=== PATIENT | female | born 1955 | race Two or more races ===

== ENCOUNTER → 2021-01-23 | Outpatient (CLI) | payer OTHER ==
--- NOTE | 2021-01-25 12:44 | RAD ---
INDICATION: 65 years of age asymptomatic female patient presents for screening mammography. TECHNIQUE: Full field craniocaudal and mediolateral oblique images of both breasts were obtained usi ng digital technique with tomosynthesis and also analyzed with computer-aided detection software. COMPARISON: 06/16/2019 06/27/2017. BREAST COMPOSITION: Category C: The breast tissue is heterogeneously dense, which could obscure detec tion of small masses. FINDINGS: The parenchymal pattern appears stable. Benign calcifications are present. Cluster of indeterminate calcifications is seen in the superior left breast approximately 6-7 cm from the nipple No suspicious masses, microcalcifications or architectural distortion is present to suggest malignanc y in the right breast. The visualized axillae are unremarkable. IMPRESSION: Left breast indeterminate microcalcifications, findings for which additional imaging is a dvised. RECOMMENDATION: The patient will be contacted to return for additional imaging and a supplemental rep ort will follow. Spot magnification views and full-field ML view recommended BIRADS 0: INCOMPLETE - NEED ADDITIONAL IMAGING EVALUATION AND/OR PRIOR MAMMOGRAMS FOR COMPARISON. This study was interpreted with the benefit of Computerized Aided Detection (CAD). ?Your patient's mammogram demonstrates that she has dense breast tissue (breast density category C or D), which could hide abnormalities, and if she has other risk factors for breast cancer that have be en identified, she might benefit from supplemental screening tests that may be suggested by you as he r ordering physician. Dense breast tissue, in and of itself, is a relatively common condition. Theref ore, this information is not provided to cause undue concern, but rather to raise your awareness and to promote discussion with your patient regarding the presence of other risk factors, in addition to dense breast tissue. Your patient's mammography results will be sent to her. Patient information is entered into the reminder system with a target due date for the next screening mammogram. Mammography is the most sensitive method for finding small breast cancers, but it does not detect the m all and is not a substitute for careful clinical examination. A negative mammogram does not negate a clinically suspicious finding and should not result in delay in biopsying a clinically suspicious a bnormality. "Our facility is accredited by the [employer] Mammography [employer]." Electronically signed by: Dann Jose MD (01/25/2021 12:41 PM) [facility]
== END ==
LOC: MAMMO 11:37
PROVIDERS: ATTEND Nurse Practitioner Family
DX: Z12.31 Encounter for screening mammogram for malignant neoplasm of breast (principal)
CPT/HCPCS: 77063; 77067

== ENCOUNTER → 2021-02-14 | Outpatient (CLI) | payer OTHER ==
--- NOTE | 2021-02-14 13:36 | RAD ---
EXAM: Left breast diagnostic mammogram. HISTORY: 65-year-old female presents for evaluation of microcalcifications within the left breast dem onstrated on a mammogram performed 01/23/2021. TECHNIQUE: Full-field digital and spot magnification views of the left breast are obtained. COMPARISON: 01/23/2021 BREAST PARENCHYMAL DENSITY: Level D - Extremely dense. FINDINGS: There is a cluster of coarse heterogeneous microcystic calcifications within the 12:00 posi tion of the left breast. No associated mass or architectural distortion is seen. There are additional surrounding benign calcifications. IMPRESSION: 1. Cluster of coarse heterogeneous microcalcifications at the 12:00 position of the left breast at mi d depth. Stereotactic guided biopsy is recommended for definitive diagnosis. 2. BI-RADS Category 4: Suspicious abnormality. Biopsy is recommended. These findings and recommendations were discussed with the patient and his information will be commun icated to the referring nurse practitioner office. If your mammogram demonstrates that you have dense breast tissue, which could hide abnormalities, and if you have other risk factors for breast cancer that have been identified, you might benefit from s upplemental screening tests that may be suggested by your ordering physician. Dense breast tissue, i n and of itself, is a relatively common condition. This information is not provided to cause undue c oncern, but rather to raise your awareness and to promote discussion with your physician regarding th e presence of other risk factors, in addition to dense breast tissue. A report of your mammography re sults will be sent to you and your physician. You should contact your physician if you have any ques tions or concerns regarding this report. Mammography is a sensitive method for finding small breast cancers, but it does not detect them all a nd is not a substitute for careful clinical examination. A negative mammogram does not negate a clin ically suspicious finding and should not result in delay in biopsying a clinically suspicious abnorma lity. PQRS compliance statement - Patient information was entered into a reminder system with a target due date for the next mammogram. "Our facility is accredited by the [employer] Mammography [employer]." Electronically signed by: Katharine Bañuelos MD (02/14/2021 1:34 PM) [id number]
== END ==
LOC: MAMMO 12:36
PROVIDERS: ATTEND Nurse Practitioner Family
DX: R92.1 Mammographic calcification found on diagnostic imaging of breast (principal)
CPT/HCPCS: 77065